=== PATIENT | female | born 1950 | race Caucasian/White ===

== ENCOUNTER → 2019-02-25 | Outpatient (CLI) | payer MEDICARE, OTHER ==
--- NOTE | 2019-02-25 15:17 | US ---
EXAMINATION TYPE: US liver DATE OF EXAM: 02/25/2019 COMPARISON: NONE CLINICAL HISTORY: R94.5 abnormal liver function test. no symptoms, abn labs EXAM MEASUREMENTS: Liver Length: 11.5 cm Gallbladder Wall: surgically absent CBD: 0.5 cm Right Kidney: 8.4 x 3.5 x 4.0 cm very thin elderly female Pancreas: wnl Liver: Increased attenuation Gallbladder: Surgically absent Evidence for sonographic Livingston's sign: no CBD: wnl Right Kidney: small in size IMPRESSION: Visualized liver is heterogeneous hyperechoic suggesting diffuse fatty infiltration and/o r underlying hepatocellular disease. Imaging guided random biopsy for tissue diagnosis can be perform ed if desired.
== END | disposition home or self-care (01) ==
LOC: RADUSWWP 14:36
PROVIDERS: ATTEND Family Medicine
DX: K76.89 Other specified diseases of liver (principal)
CPT/HCPCS: 76705

== ENCOUNTER → 2019-02-25 | Outpatient (CLI) | payer MEDICARE, OTHER | END | disposition home or self-care (01) | LOC: CPPFTMAIN 13:52 | PROVIDERS: ATTEND Internal Medicine | DX: J44.1 Chronic obstructive pulmonary disease with (acute) exacerbation (principal); R94.2 Abnormal results of pulmonary function studies | CPT/HCPCS: 76705; 94060; 94726; 94729 ==